=== PATIENT | female | born 1940 | race Caucasian/White ===

== ENCOUNTER → 2017-09-29 | Outpatient (CLI) | payer OTHER ==
[~2017-09-29] MED LIST: ADULT LOW DOSE81 MG PO; ANTIVERT25 MG PO; ASPIR 8181 MG PO; CALCIUM 500+D1 EAC2 PO; CENTRUM SILVER1 EAC4 PO; ESTRACE1 MG PO; FISH OIL 1,0001 EAC5 PO; GABAPENTIN 100100 MG PO; HYDROCODONE-APA1 TA1 PO; IBUPROFEN 600600 M1 PO; MECLIZINE HCL12.5 MG PO; SIMVASTATIN20 MG PO; SYNTHROID50 MCG PO; TRAMADOL 50 MG50 MG PO; VITAMIN D-32000 UNIT PO; XARELTO10 MG PO
--- NOTE | ~2017-09-29 | HC ---
[facility] [place] [address] CONSULTATION Name: MARJORIE BRADSHAW [id number] Admission: 09/29/17 Attend Phys: Basilio Galdamez Discharge: Date of : 36 Report #: [id number] THIS REPORT FOR: //name// CC: FAM unknown Basilio Redd MD DATE OF SERVICE: 09/29/2017 REFERRING PHYSICIAN: Dr. Drummond. REASON FOR CONSULTATION: Right elbow bursitis - infection with MRSA. 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 The patient initially seen by landing man who referred her to Dr. Tramaine Drummond who has performed surgery to the right elbow with excision of the right olecranon bursa. Culture of the right elbow drainage on 09/21/2017 revealed 4+ growth of Staphylococcus aureus resistant to oxacillin, sensitive to tetracycline, Bactrim, vancomycin and linezolid. The patient relates she had some drainage from the right elbow, rather profuse on occasions. She relates pain from the right elbow. No other systemic symptoms. DRUG ALLERGIES: THE PATIENT RELATES SHE IS ALLERGIC OR INTOLERANT TO BACTRIM-DS (ANAPHYLAXIS). DOXYCYCLINE (GI UPSET), CODEINE, AUGMENTIN AND . MEDICATIONS: She is on treatment with calcium - Citracal, D3 one daily, Antivert 12.5 mg once daily, aspirin 81 mg daily, Synthroid 50 mcg daily, simvastatin 20 mg daily, estradiol 1 mg daily, fish oil 1200 mg daily, multivitamin daily, vitamin D3 daily. PAST MEDICAL HISTORY: Ear infections from the right ear. Chronic dizziness. She is status post umbilical hernia repair, cholecystectomy, right ankle arthroscopic assisted arthrodesis. She has open heart surgery for correction of what appears to be a ventricular septal defect done at [facility] by Dr. Billingsley. She is also status post hysterectomy, left and right trigger finger surgeries. Lumbar diskectomy with fusion. She had undergone right total hip replacement by Dr. Drummond. SOCIAL HISTORY: Second marriage to present for 40+ years. They both have combined 7 children. She smokes a pack of cigarettes per day. Occasional wine. REVIEW OF SYSTEMS: Essentially noncontributory besides right elbow pain and drainage per right elbow sinus tract. [facility] [address] [place] [address] CONSULTATION Name: MARJORIE BRADSHAW Room #: REG [facility]#: [id number] Admission: 09/29/17 Attend Phys: Basilio Galdamez Discharge: Date of : 36 Report #: [id number] PHYSICAL EXAMINATION: GENERAL: Well-developed woman, not toxic looking, afebrile. VITAL SIGNS: Stable. Pulse 80, blood pressure 152/67, weight 140 pounds. O2 saturation 95% on room air. HEENMT: Within range. NECK: Supple, no thyromegaly. BREASTS: Deferred. LUNGS: Clear. HEART: S1, S2. No gallop. ABDOMEN: Soft, no masses or megaly. EXTREMITIES: No clubbing, cyanosis. Right elbow shows small sinus tract and there is drainage of a thin type fluid, which made me suspect possible some fluid from the olecranon bursa, which according to the patient was resected already. MICROBIOLOGY DATA: Culture of the right elbow on 09/21/2017 has revealed MRSA sensitivity as above. RADIOLOGY EVALUATION: MRI of the right elbow revealed no evidence of osteomyelitis. ASSESSMENT: 1. Right olecranon bursitis status post surgery and bursa resection. 2. Methicillin resistant Staphylococcus infection, right elbow bursa. 3. Status post hysterectomy, cholecystectomy, umbilical hernia repair and ventricular septal defect correction. 4. Chronic obstructive pulmonary disease. 5. Meniere's disease. SUGGESTIONS: Recommend discuss therapeutic options that include intravenous vancomycin, oral Zyvox and oral minocycline. Taking in consideration the degree of infection, which is rather mild, I recommend she goes on minocycline 100 mg p.o. b.i.d. #60. She must not take the minocycline close to calcium containing medications. Consequently, possibly we can dispense with the Citracal for the time being. She had not had any blood tests up lately and consequently, she needs CBC, CMP, ESR and CRP. I would like to see the patient again in [address] Tramaine Drummond, thank you for requesting my suggestions in the care of your patient. <ELECTRONICALLY SIGNED> By: Basilio Jeronimo MD 09/30/17 1001 [id number] Basilio Jeronimo MD /nt
[2017-09-29 10:56] VITALS: BP 152/67
[2017-09-29 12:20] LABS: ABSOLUTE NEUTROPHILS 4.2 thou/uL (1.4-8.2); HEMATOCRIT 44.5 % (37.0-47.0); LYMPHOCYTES 22.1 % (24.0-44.0); MCHC 33.7 g/dL (28.0-37.0); MCV 94.9 fL (80.0-100.0); PLATELET COUNT 258 thou/uL (150-400); POLYS 66.9 % (36.0-66.0); RBC 4.68 mil/uL (4.20-5.00); RDW 14.2 % (10.5-14.5); WBC 6.3 thou/uL (4.0-11.0)
[2017-09-29 12:33] LABS: ALBUMIN 4.1 g/dL (3.4-5.0); CALCIUM 9.2 mg/dL (8.5-10.1); CREATININE 0.9 mg/dL (0.6-1.0); POTASSIUM 4.3 mmol/L (3.5-5.1); TOTAL BILIRUBIN 0.2 mg/dL (<0.1-1.0); TOTAL PROTEIN 7.5 g/dL (6.4-8.2)
== END ==
LOC: SEN 08:23
PROVIDERS: Internal Medicine Infectious Disease
DX: J44.9 Chronic obstructive pulmonary disease, unspecified (principal); M70.31 Other bursitis of elbow, right elbow; H81.09 Meniere's disease, unspecified ear